=== PATIENT | male | born 1980 | race Caucasian/White ===

== ENCOUNTER 2016-07-08 15:04 | Observation (INO) | payer OTHER ==
--- NOTE | 2016-07-08 15:17 | CPEKG ---
Heart Rate: 86 RR Interval: 698 P-R Interval: 148 QRSD Interval: 100 QT Interval: 384 QTC Interval: 460 P Tatum: 32 QRS Tatum: 62 T Wave Tatum: 56 EKG Severity - NORMAL ECG - EKG Impression: SINUS RHYTHM Electronically Signed By: Lico Russell 08-Jul-2016 16:51:25
--- NOTE | 2016-07-08 15:28 | EDPHY ---
H & P Time Seen by Provider: 07/08/16 15:05 HPI/ROS: Chief complaint. Seizure HPI. 35-year-old male here by EMS after having a seizure. He tells me he had a routine day slept well last night, ate breakfast, had lunch. He was at his office and does not remember feeling lightheaded or different and the next thing he remembers is he awoke to EMS. A co-worker did not observe the initial fall or seizure but did witness some seizure activity and then prolonged loss of consciousness. He has had syncope with twitching previously but no full- blown seizure such as this. The patient injured his left ear left face and also complains of upper back pain. EMS placed a cervical collar but the patient tells me he does not have any neck pain. ROS Constitutional. no fever/chills, no weakness Eyes. no problems with vision ENT. Left face and left ear trauma. Bit tongue Cardiovascular. no chest pain Respiratory. no shortness of breath, no cough Abdominal. no abdominal pain, no nausea/vomiting, no diarrhea . no problems urinating MS. no calf pain/swelling, no neck/back pain, no joint pain Skin. no rash Lymph. no swollen glands Neuro. no headache, no dizziness, no difficulty walking or with speech Past Medical/Surgical History: Previous syncope with twitching or seizure-type activity. Stress live it related vomiting-cyclic vomiting syndrome, previous atrial fibrillation Social History: , does not smoke tobacco, 1-2 drinks of alcohol per month Physical Exam: General Appearance: Alert well-developed male moderate distress vital signs are stable Eyes: Pupils equal and round no pallor or injection. ENT, tympanic membranes are normal. There is a hematoma to the left ear and the superficial laceration at the entrance to the left ear canal. There is an abrasion to the left side of his nose as well as to the left advent.. Abrasion to the left side of his tongue Respiratory: There are no retractions, lungs are clear to auscultation. Cardiovascular: Regular rate and rhythm. Gastrointestinal: Abdomen is soft and nontender, no masses, bowel sounds normal. Neurological: Awake and alert, sensory and motor exams grossly normal. Skin: Warm and dry, no rashes. Musculoskeletal: Neck is supple nontender. Thoracic spine tenderness at T4-T5 T6 area Extremities symmetrical, full range of motion. Psychiatric: Patient is oriented X 3, there is no agitation. Constitutional: Initial Vital Signs Temperature (C) 36.9 C 07/08/16 15:31 Heart Rate 83 07/08/16 15:31 Respiratory Rate 16 07/08/16 15:31 Blood Pressure 142/92 H 07/08/16 15:31 O2 Sat (%) 96 07/08/16 15:31 O2 Delivery Mode Room Air Allergies/Adverse Reactions: No Known Allergies Allergy (Unverified 08/28/12 02:23) Home Medications: Medication Instructions Recorded Escitalopram Oxalate [Lexapro] 10 mg PO DAILY 07/08/16 Propafenone HCl [Rythmol 150mg (*)] 150 mg PO DAILY PRN 07/08/16 Medical Decision Making - Diagnostics EKG Interpretation: EKG interpreted by me shows normal sinus rhythm with normal interval and axis. QRS is normal there is no significant ST elevation or depression. There is no arrhythmia. The rate is 86 Imaging: Normal head CT per Dr. nails and reviewed by me Per Dr. nails T4 and T5 compression fracture Procedures: IV normal saline, monitor, seizure precautions. Morphine for pain. The patient tells me he has no neck pain. I removed the collar and palpated his neck. He has no cervical spine tenderness. Gentle passive and active range of motion elicit no neck pain or neurologic findings so the cervical collar is discontinued by me ED Course/Re-evaluation: I consulted Neurosurgery who reviewed the film with me and they feel pain management at this point in time. They will see the patient in the hospital Discussed case with neurologist composition tile layer who recommends no Keppra at this point in time but they will also see him tonight Re-evaluation patient is more comfortable after the IV morphine. The patient, his , and I discussed treatment plan including recommendation for admission and further evaluation. They expressed understanding and agreement I consulted Dr. vishnu Ojeda, hospitalist, who will evaluate the patient in the ED Differential Diagnosis: Seizure of unclear etiology. No evidence for ingestions or withdrawals. No recent head trauma. No evidence for intracranial bleeding or brain tumor - Data Points Laboratory Results: Laboratory Results 07/08/16 15:29 07/08/16 15:29 07/08/16 15:29 WBC 14.57 H 10^3/uL (3.80-9.50) RBC 5.34 10^6/uL (4.40-6.38) Hgb 17.2 g/dL (13.7-17.5) Hct 52.1 H % (40.0-51.0) MCV 97.6 fL (81.5-99.8) MCH 32.2 pg (27.9-34.1) MCHC 33.0 g/dL (32.4-36.7) RDW 12.8 % (11.5-15.2) Plt Count 298 10^3/uL (150-400) MPV 10.0 fL (8.7-11.7) Neut % (Auto) Not Reported Lymph % (Auto) Not Reported [place] % (Auto) Not Reported Eos % (Auto) Not Reported Baso % (Auto) Not Reported Nucleat RBC Rel Count 0.4 H % (0.0-0.2) Absolute Neuts (auto) Not Reported Absolute Lymphs (auto) Not Reported Absolute Monos (auto) Not Reported Absolute Eos (auto) Not Reported Absolute Basos (auto) Not Reported Absolute Nucleated RBC 0.06 H 10^3/uL (0-0.01) Immature Gran % Not Reported Seg Neutrophils % 43 % Band Neutrophils % 1 % Lymphocytes % 46 % Monocytes % 6 % Basophils % 1 % Metamyelocytes % 3 % Immature Gran # Not Reported Absolute Seg Neuts 6.27 10^/uL (1.70-6.50) Absolute Band Neuts 0.15 10^3/uL (0.00-0.70) Absolute Lymphocytes 6.70 H 10^3/uL (1.00-3.00) Absolute Monocytes 0.87 H 10^3/uL (0.30-0.80) Absolute Basophils 0.15 H 10^3/uL (0.02-0.10) Absolute Metamyelocyte 0.44 H 10^3/mL (0.00-0.00) RBC/WBC/PLT Morphology NORMAL (NORMAL) Platelet Estimate ADEQUATE (ADEQ) Large Platelets PRESENT H Smear Review By Pending Sodium 147 H mEq/L (134-144) Potassium 3.7 mEq/L (3.5-5.2) Chloride 103 mEq/L (97-110) Carbon Dioxide 8 L* mEq/l (22-31) Anion Gap 36 mEq/L (8-16) BUN 13 mg/dL (7-23) Creatinine 1.0 mg/dL (0.7-1.3) Estimated GFR > 60 Glucose 116 H mg/dL (70-100) Calcium 10.1 mg/dL (8.5-10.4) Troponin I < 0.012 ng/mL (0-0.034) Medications Given: Discontinued Medications Sodium Chloride (Ns) 1,000 mls @ 0 mls/hr IV ONCE ONE PRN Reason: Wide Open Stop: 07/08/16 15:30 Last Admin: 07/08/16 15:30 Dose: 1,000 mls Morphine Sulfate (Morphine) 6 mg IVP EDNOW ONE Stop: 07/08/16 15:47 Last Admin: 07/08/16 15:50 Dose: 6 mg Departure - Departure Disposition: [facility] In[facility] Acute Clinical Impression: Seizure Compression fracture of thoracic vertebra Qualifiers: Encounter type: initial encounter Fracture type: closed Qualifier Code: ( S22.000A) Wedge compression fracture of unspecified thoracic vertebra, initial encounter for closed fracture Condition: Good
[2016-07-08] MEDS ORDERED: NS 1,000 ML IV ONE ×3 (15:29→18:09)
[2016-07-08 15:46] LABS: ABSOLUTE NRBC COUNT 0.06 10^3/uL (0-0.01); ADD DIFF? YES; ADD MORPH? NO; ADD SCAN? NO; ATYPICAL LYMPHOCYTE FLAG 20 (0-99); FRAGMENT RBC FLAG 0 (0-99); HEMATOCRIT 52.1 % (40.0-51.0); HEMOGLOBIN 17.2 g/dL (13.7-17.5); LEFT SHIFT FLG 20 (0-99); LIPEMIA HEMOLYSIS FLAG 80 (0-99); MEAN CELL HEMOGLOBIN 32.2 pg (27.9-34.1); MEAN CELL VOLUME 97.6 fL (81.5-99.8); NRBC-AUTO% 0.4 % (0.0-0.2); PLATELET CLUMPS FLAG 0 (0-99); PLATELET COUNT 298 10^3/uL (150-400); RED BLOOD CELL COUNT 5.34 10^6/uL (4.40-6.38); RED CELL DISTRIBUTION WIDTH 12.8 % (11.5-15.2)
[2016-07-08 15:51] LABS: CALCIUM 10.1 mg/dL (8.5-10.4); CARBON DIOXIDE 8 mEq/l (22-31); CHLORIDE 103 mEq/L (97-110); GLOMERULAR FILTRATION RATE > 60; GLUCOSE 116 mg/dL (70-100); POTASSIUM 3.7 mEq/L (3.5-5.2); SODIUM 147 mEq/L (134-144)
[2016-07-08 15:52] LABS: ANION GAP 36 mEq/L (8-16)
[2016-07-08 16:02] LABS: TROPONIN I < 0.012 ng/mL (0-0.034)
[2016-07-08 16:42] LABS: LARGE PLATELETS PRESENT
[2016-07-08 16:43] LABS: PLATELET ESTIMATE ADEQUATE (ADEQ)
--- NOTE | 2016-07-08 17:07 | CT ---
CT Scan of Head (Without Contrast) Clinical Indications: Seizure. Technique: Axial CT images were acquired from foramen magnum through vertex, without intravenous con trast. Soft tissue and bone windows were reviewed on the computer workstation. Images were reconstr ucted down to 1.25-mm images. Dose reduction techniques were utilized. Findings: No mass lesions are seen, and there is no evidence of intracranial hemorrhage or acute inf arct. The ventricles and subarachnoid spaces are normal in size for this age group. Bone windows re veal no sign of fracture. There is some maxillary sinus disease on the right side. Impression: Normal CT of the head. Right maxillary sinus disease Critical results relayed by Dr. Moi Hauser to Dr. Lico Russell on July 08, 2016 at 1703 hours.
[2016-07-08] MEDS ORDERED: ONDANSETRON DISINTEGRATING 4 MG TAB PO PRN (17:11)
[2016-07-08] MEDS ORDERED: ACETAMINOPHEN 325 MG TAB PO PRN (17:11)
[2016-07-08] MEDS ORDERED: ONDANSETRON 4 MG/2 ML VIAL IVP PRN (17:11)
--- NOTE | 2016-07-08 17:34 | CT ---
CT Thoracic Spine Clinical Indication: Trauma. Technique: 1.5-mm contiguous helical axial scanning from the thoracic inlet through the upper abdome n centered on the thoracic spine. Reconstructions were performed in the coronal and sagittal planes. Dose reduction technique was performed. Findings: There are 13 sets of ribs. This likely represents small cervical ribs. Conventional labe ling was performed from inferior to superior, with the lowest level of ribs at T12. There are wedge compression fractures, without significant retropulsion, at T4 and T5. Loss of height is moderate at T4 and mild to moderate at T5. The pedicles are intact. There is no evidence of adjacent rib fract ures. Mild amount of soft tissue swelling is present. I do not see a definite disk bulge or spinal canal c ompromise. Impression: Two-level compression fractures, with mild to moderate height loss, at T4 and T5. Critical results discussed by Dr. Hauser with Dr. Russell on July 08, 2016 at 1723 hours.
[2016-07-08] MEDS ORDERED: NS 1,000 ML IV SCH (18:15)
--- NOTE | 2016-07-08 18:39 | GHP ---
[f rep st] HISTORY AND PHYSICAL DATE OF ADMISSION: 07/08/2016 CHIEF COMPLAINT: Loss of consciousness. HISTORY OF PRESENT ILLNESS: A 35-year-old male with a history of anxiety on Lexapro, who presents af ter loss of consciousness while at work. The patient reports being in his normal state of health on the morning of presentation, eating a normal breakfast, denying any palpitations, lightheadedness, di zziness, chest pain, shortness of breath, was experiencing some nervousness or anxiety at work relate d to the project he was working on, otherwise normal morning for him. The next thing he recalls is w aking up with paramedics standing over him. Nobody witnessed the event. Patient clearly fell and park d a laceration of his head, bit his tongue, and sounds per descriptions by paramedics and those obser ving him was postictal in the period as he was going to regaining consciousness. Patient reports hav ing a similar episode of loss of consciousness several years ago, was evaluated at the time, and had a transient rhythm strip showing atrial fibrillation, followed at [facility] with an event monito r for over a month that showed no recurrence of his atrial fibrillation. Since that time, cannot rep ort any similar episodes. In the emergency department, patient is complaining of severe thoracic rick k pain and difficulty sitting up or moving. Endorses some headache. Denies any vision changes, dysp hagia, chest pain, palpitations, abdominal discomfort, or pain in his extremities. PAST MEDICAL HISTORY: 1. Anxiety, on Lexapro. 2. Lone atrial fibrillation, not receiving treatment. SOCIAL HISTORY: Negative for tobacco. Occasional alcohol and nightly marijuana use. FAMILY HISTORY: Negative for seizures. REVIEW OF SYSTEMS: A 10-point review of systems is negative with the exception of that reported in t he HPI. ADVANCED DIRECTIVES: Patient is full cor, full tube. PHYSICAL EXAMINATION: VITAL SIGNS: Blood pressure is 142/92, heart rate 83, respiratory rate 16, 96 % on room air, 36.9. GENERAL: This is a thin-appearing young man, in mild distress. HEENT: Notabl e for dry mucous membranes. Eyes negative for any icterus. Patient does have a laceration across hi s left church and blood in his left ear. There is a sizable laceration of the tongue noted on ENT ex am. CARDIAC: Patient has regular rate and rhythm. No murmurs, gallops, or rubs. PULMONARY: Clear to auscultation bilaterally. GASTROINTESTINAL: Positive bowel sounds. Abdomen is soft and nontend er to palpation. MUSCULOSKELETAL: Patient has point tenderness in his midthoracic vertebrae, is dioni ble to sit up secondary to pain. No lower extremity edema is appreciated. SKIN: Negative for any r ashes. NEUROLOGIC: Patient is alert and oriented x3. His sensation is intact throughout. Strength is intact throughout. PSYCHIATRIC: He does appear anxious on my examination. DATA: Noncontrast CT of the head, which I personally reviewed and interpreted, shows no acute intrac ranial findings. Thoracic spine CT, which I personally reviewed and interpreted, shows compression f ractures at T4 and T5. Radiology describes mild to moderate height loss without disk bulge or canal stenosis. LABORATORY: White count 14.5, platelets at 298. Carbon dioxide of 8, sodium of 147, creatinine of 1 .0, baseline 0.7. Troponin less than 0.012. ASSESSMENT AND PLAN: This is a 35-year-old male, presenting after loss of consciousness. 1. Acute seizure: Patient has acidosis leukocytosis, compression fractures, tongue laceration, and head trauma consistent with a seizure episode. Have discussed the case with Neurology and will initi ate Keppra 750 mg b.i.d. this evening. They will consult in the morning for further recommendations. No additional imaging will be ordered this evening prior to their consultation. Patient will be ad mitted to the neurology floor under observation for neuro checks and monitoring. 2. Acute thoracic compression fractures, secondary to seizure: Neurosurgery has been consulted from the emergency department. They will consult. Will manage pain control overnight. Expect likely pat ient will be fitted with a brace tomorrow. 3. Severe metabolic acidosis: Anion gap is 36. Again, this is likely related to the patient's seiz ure. Will add a CK to his labs and track. Will provide aggressive fluid resuscitation overnight to avoid any evolving acute kidney injury and correct the patient's acid base abnormalities. 4. Acute leukocytosis: Suspect this is stress-related to the seizure event. Will recheck in the mo rning. Will not perform additional diagnostics related to occult infection as my suspicion is low. 5. Anxiety: Will continue patient's Lexapro, have reviewed with Pharmacy and there appears to be no in correlations with seizure thresholds or medications. 6. Prophylaxis: With Lovenox. 7. Diet: Regular. DISPOSITION: Expect in less than 2-midnights if the patient's neurologic consultation is uneventful. I have discussed the case with Neurology. They will consult early tomorrow morning. /[id number]/MODL
[2016-07-08] MEDS ORDERED: levETIRAcetam 500 MG TAB ONE (19:45)
[2016-07-08] MEDS: levETIRAcetam 250 MG TAB PO SCH (20:35)
[2016-07-08] MEDS: HYDROCODONE/APAP 5/325 TAB PO PRN (21:48)
[2016-07-09] MEDS: HYDROCODONE/APAP 5/325 TAB PO PRN ×4 (02:31→17:15)
[2016-07-09 04:04] LABS: PHENCYCLIDINE URINE BCH < 6 ng/ml (NEGATIVE)
[2016-07-09 04:14] LABS: PHENCYCLIDINE URINE BCH NEGATIVE (NEGATIVE)
[2016-07-09 04:16] LABS: TETRAHYDROCANNABINOL URINE 684 ng/mL (NEGATIVE)
[2016-07-09 04:38] LABS: TETRAHYDROCANNABINOL URINE 684 ng/mL (NEGATIVE)
[2016-07-09 05:48] LABS: % IMMATURE GRANULYOCYTES 0.3 % (0.0-1.1); ABSOLUTE IMMATURE GRANULOCYTES 0.04 10^3/uL (0.00-0.10); ADD DIFF? NO; ADD MORPH? NO; ADD SCAN? NO; ATYPICAL LYMPHOCYTE FLAG 0 (0-99); FRAGMENT RBC FLAG 0 (0-99); HEMATOCRIT 41.9 % (40.0-51.0); HEMOGLOBIN 14.1 g/dL (13.7-17.5); LEFT SHIFT FLG 0 (0-99); LIPEMIA HEMOLYSIS FLAG 80 (0-99); MEAN CELL HEMOGLOBIN 31.5 pg (27.9-34.1); MEAN CELL HEMOGLOBIN CONCENTR. 33.7 g/dL (32.4-36.7); MEAN CELL VOLUME 93.7 fL (81.5-99.8); MEAN PLATELET VOLUME 9.7 fL (8.7-11.7); PLATELET CLUMPS FLAG 0 (0-99); PLATELET COUNT 195 10^3/uL (150-400); RED BLOOD CELL COUNT 4.47 10^6/uL (4.40-6.38); RED CELL DISTRIBUTION WIDTH 13.1 % (11.5-15.2)
[2016-07-09 06:04] LABS: ANION GAP 8 mEq/L (8-16); CALCIUM 8.4 mg/dL (8.5-10.4); CARBON DIOXIDE 23 mEq/l (22-31); CHLORIDE 109 mEq/L (97-110); CREATININE 0.7 mg/dL (0.7-1.3); GLOMERULAR FILTRATION RATE > 60; GLUCOSE 98 mg/dL (70-100); SODIUM 140 mEq/L (134-144)
[2016-07-09 07:10] LABS: ALBUMIN 3.1 g/dL (3.5-5.0); BILIRUBIN,TOTAL 0.6 mg/dL (0.1-1.4); BILIRUBIN-UNCONJUGATED 0.6 mg/dL (0.0-1.1); CALCIUM 8.3 mg/dL (8.5-10.4); MAGNESIUM 1.9 mg/dL (1.6-2.3); TOTAL PROTEIN 5.7 g/dL (6.3-8.2)
[2016-07-09] MEDS: levETIRAcetam 250 MG TAB PO SCH (07:46)
--- NOTE | 2016-07-09 08:33 | PDCONSULT ---
Regulatory Affairs Coordinator Note: HOSPITAL NEUROLOGY CONSULT REQUESTING: Maame Oliva MD REASON: seizure HPI: This is a 35-year-old right-handed gentleman with a history of anxiety, a lone/ isolated episode of atrial fibrillation, syncopal/presyncopal episodes with convulsive features who presented to our emergency department last night due to a seizure. History is provided by the patient as well as his via telephone. 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 He had been feeling quite stressed out due to a project, had some lightheadedness and the next thing he knew he woke up on the floor with paramedics around him. Paramedics were summoned as a co-worker had heard him from a far fall to the ground, but there was no witnessed seizure activity. Paramedics found the patient to be in a postictal state. He was brought to our Emergency Department and found to have a tongue laceration, thoracic compression fractures, leukocytosis and metabolic acidosis. His postictal state has cleared in the emergency department. Again, the patient is amnestic of the episode and there were no eye witnesses to confirm any actual convulsive activity. Patient denies having any previous seizures, however, endorses multiple episodes of passing out or feeling like he may pass out. His states that he has had several of these episodes witnessed where he will become pale and lose postural tone. She states he can variably respond to her questions appropriately. She also states that if he passes out for maybe some mild twitching, but no alonso generalized tonic or clonic activity. The patient has no epilepsy risk factors including traumatic brain injury, intracranial instrumentation/infection, collagen vascular disease, infantile/febrile seizures, family history of epilepsy. Patient has not had any new medication changes, denies any toxic exposures or ingestions, does not use illicit substances and does not drink alcohol in excess. He has no focal neurologic deficits, HAs, fevers, chills, neck stiffness, photophobia. ROS: As per the HPI, otherwise a complete 12 point ROS was performed and is negative ALLERGIES AND MEDS: As recorded in the EMR - reviewed and reconciled PFSH: As per the intake H&P by Dr. Oliva from 07/08/16 EXAM: GEN: WDWN laying in NAD HEENT: NCAT, sclera anicteric, conjunctiva not injected, MMM, oropharynx clear, no scalp tenderness, tongue laceration on the left NECK: supple, nontender, no meningismus CV: RRR s1 s2 wo m/r/c/g. Carotid pulses 2+ wo bruit NEURO: MS: awake, alert, oriented to all spheres. Speech nondysarthric. No language disturbance. Follows commands. Attends to both sides. Recent/remote memory grossly intact. Mood euthymic. Good fund of knowledge. CN: pupils 3mm round and reactive. Fundi with sharp discs. VFF. Primary gaze centered. Full ocular motility. Facial sensation preserved. Face symmetric. Palatoglossal movements intact. Shoulder shrug and head turn strong. MOTOR: normal bulk/tone. No adventitial movements. Full power throughout. SENSORY: intact to all modalities throughout. No extinction. COORD: no ataxia FN/HS. Angelita preserved. Romberg neg. REFLEX: plantars down. No clonus. DTRS 2/4. GAIT: unable to assess, as patient has too much back pain to ambulate DATA: Labs reviewed in the EMR CT head without contrast from yesterday reviewed-normal study IMPRESSION AND RECOMMENDATIONS: // GENERALIZED CONVULSION // LEUKOCYTOSIS - IMPROVED - REACTIVE // METABOLIC ACIDOSIS - IMPROVED - REACTIVE // THORACIC COMPRESSION FRACTURES FROM CONVULSION // HX ANXIETY // HX MULTIPLE SYNCOPAL/PRESYNCOPAL EPISODES Patient is here with what is very much likely a generalized convulsion. Although the convulsion was not witnessed, the epiphenomenon such as tongue laceration, leukocytosis, metabolic acidosis and thoracic compression fractures are compelling for seizure activity. Patient has no obvious provocative factor for his seizure and no epilepsy risk factors. - cont levetiracetam 750mg PO BID - MRI brain wow seizure protocol today - medical management per primary team - neurosurgery to evaluate for thoracic compression fractures - seizure safety precautions reviewed - no climbing heights, swimming/tub bathing alone, operating heavy machinery or other activities that could put self or others in harm's way due to seizures. 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 - driving restriction reviewed per state law - no driving for 90 days from seizure onset - clock resets with subsequent seizures - if MRI is unremarkable, can be discharged home today and followup with me in clinic in 2 weeks. Will need outpatient 4 hour vEEG. WBC 11.97 10^3/uL (3.80-9.50) H 07/09/16 05:17 RBC 4.47 10^6/uL (4.40-6.38) 07/09/16 05:17 Hgb 14.1 g/dL (13.7-17.5) 07/09/16 05:17 Hct 41.9 % (40.0-51.0) D 07/09/16 05:17 MCV 93.7 fL (81.5-99.8) 07/09/16 05:17 MCH 31.5 pg (27.9-34.1) 07/09/16 05:17 MCHC 33.7 g/dL (32.4-36.7) 07/09/16 05: RDW 13.1 % (11.5-15.2) 07/09/16 05:17 Plt Count 195 10^3/uL (150-400) D 07/09/16 05:17 MPV 9.7 fL (8.7-11.7) 07/09/16 05:17 Neut % (Auto) 67.6 % (39.3-74.2) 07/09/16 05:17 Lymph % (Auto) 21.9 % (15.0-45.0) 07/09/16 05:17 [place] % (Auto) 9.3 % (4.5-13.0) 07/09/16 05:17 Eos % (Auto) 0.6 % (0.6-7.6) 07/09/16 05:17 Baso % (Auto) 0.3 % (0.3-1.7) 07/09/16 05:17 Nucleat RBC Rel Count 0.0 % (0.0-0.2) 07/09/16 05:17 Absolute Neuts (auto) 8.10 10^3/uL (1.70-6.50) H 07/09/16 05:17 Absolute Lymphs (auto) 2.62 10^3/uL (1.00-3.00) 07/09/16 05:17 Absolute Monos (auto) 1.11 10^3/uL (0.30-0.80) H 07/09/16 05:17 Absolute Eos (auto) 0.07 10^3/uL (0.03-0.40) 07/09/16 05:17 Absolute Basos (auto) 0.03 10^3/uL (0.02-0.10) 07/09/16 05:17 Absolute Nucleated RBC 0.00 10^3/uL (0-0.01) 07/09/16 05:17 Immature Gran % 0.3 % (0.0-1.1) 07/09/16 05:17 Seg Neutrophils % 43 % 07/08/16 15:29 Band Neutrophils % 1 % 07/08/16 15:29 Lymphocytes % 46 % 07/08/16 15:29 Monocytes % 6 % 07/08/16 15: Basophils % 1 % 07/08/16 15: Metamyelocytes % 3 % 07/08/16 15: Immature Gran # 0.04 10^3/uL (0.00-0.10) 07/09/16 05:17 Absolute Seg Neuts 6.27 10^/uL (1.70-6.50) 07/08/16 15:29 Absolute Band Neuts 0.15 10^3/uL (0.00-0.70) 07/08/16 15:29 Absolute Lymphocytes 6.70 10^3/uL (1.00-3.00) H 07/08/16 15:29 Absolute Monocytes 0.87 10^3/uL (0.30-0.80) H 07/08/16 15:29 Absolute Basophils 0.15 10^3/uL (0.02-0.10) H 07/08/16 15:29 Absolute Metamyelocyte 0.44 10^3/mL (0.00-0.00) H 07/08/16 15:29 RBC/WBC/PLT Morphology NORMAL (NORMAL) 07/08/16 15:29 Platelet Estimate ADEQUATE (ADEQ) 07/08/16 15:29 Large Platelets PRESENT H 07/08/16 15:29 Sodium 140 mEq/L (134-144) 07/09/16 05:17 Potassium 4.0 mEq/L (3.5-5.2) 07/09/16 05:17 Chloride 109 mEq/L (97-110) 07/09/16 05:17 Carbon Dioxide 23 mEq/l (22-31) D 07/09/16 05:17 Anion Gap 8 mEq/L (8-16) 07/09/16 05:17 BUN 14 mg/dL (7-23) 07/09/16 05:17 Creatinine 0.7 mg/dL (0.7-1.3) 07/09/16 05:17 Estimated GFR > 60 07/09/16 05:17 Glucose 98 mg/dL (70-100) 07/09/16 05:17 Calcium 8.3 mg/dL (8.5-10.4) L 07/09/16 06:14 Phosphorus 3.7 mg/dL (2.5-4.5) 07/09/16 06:14 Magnesium 1.9 mg/dL (1.6-2.3) 07/09/16 06:14 Total Bilirubin 0.6 mg/dL (0.1-1.4) 07/09/16 06:14 Conjugated Bilirubin 0.0 mg/dL (0.0-0.5) 07/09/16 06:14 Unconjugated Bilirubin 0.6 mg/dL (0.0-1.1) 07/09/16 06:14 AST 35 IU/L (17-59) 07/09/16 06:14 ALT 36 IU/L (21-72) 07/09/16 06:14 Alkaline Phosphatase 58 IU/L (38-126) 07/09/16 06:14 Creatine Kinase 128 IU/L (0-224) 07/08/16 15:29 Troponin I < 0.012 ng/mL (0-0.034) 07/08/16 15:29 Total Protein 5.7 g/dL (6.3-8.2) L 07/09/16 06:14 Albumin 3.1 g/dL (3.5-5.0) L 07/09/16 06:14 TSH 0.986 uIU/mL (0.465-4.680) 07/09/16 05:17 Urine Opiates Screen 6130 ng/mL (NEGATIVE) 07/09/16 02:40 Urine Barbiturates NEGATIVE ng/mL (NEGATIVE) 07/09/16 02:40 Ur Phencyclidine Scrn NEGATIVE ng/mL (NEGATIVE) 07/09/16 02:40 Ur Amphetamine Screen NEGATIVE (NEGATIVE) 07/09/16 02:40 Ur Amphetamines Screen NEGATIVE ng/mL (NEGATIVE) 07/09/16 02:40 U Benzodiazepines Scrn NEGATIVE ng/mL (NEGATIVE) 07/09/16 02:40 Urine Cocaine Screen NEGATIVE ng/mL (NEGATIVE) 07/09/16 02:40 U Marijuana (THC) Screen 684 ng/mL (NEGATIVE) 07/09/16 02:40 Temp Pulse Resp BP Pulse Ox 36.4 C 67 14 127/90 H 91 L 07/09/16 08:00 07/09/16 08:00 07/09/16 08:00 07/09/16 08:00 07/09/16 08:00 O2 (L/minute) 1
[2016-07-09] MEDS ORDERED: GADOBUTROL 10 ML VIAL IVP ONE (08:44)
[2016-07-09] MEDS ORDERED: ESCITALOPRAM OXALATE 10 MG TAB PO SCH (09:00)
[2016-07-09] MEDS ORDERED: ENOXAPARIN 40 MG/0.4 ML SYR SC SCH ×2 (09:00)
--- NOTE | 2016-07-09 12:47 | GCON ---
[f rep st] CONSULTATION NEUROSURGICAL CONSULTATION DATE OF CONSULTATION: 07/09/2016 CHIEF COMPLAINT: History of back pain. HISTORY OF PRESENT ILLNESS: Mr. Crockett is a 35-year-old male with a history of anxiety and atrial f ibrillation. He was in his normal state of health until the morning of 07/08/16 when the next thing h e recalls was he woke up with paramedics standing over him. This was a nonwitnessed event, but he pretty eared to be postictal according to the paramedics. He was evaluated in the emergency department, and he was found to have a T4 compression fracture. Neurosurgical consultation was requested. He currentl y complains of ongoing back pain. He denies any rib pain or chest pain. He denies any leg pain, weakn ess, paresthesias, bowel or bladder problems or ataxia. PAST MEDICAL HISTORY: 1. Anxiety. 2. Atrial fibrillation. CURRENT MEDICATIONS: Lexapro. ALLERGIES: No known drug allergies. FAMILY HISTORY: Patient has no family history of seizures or spinal fractures. SOCIAL HISTORY: Patient is with no children. He states that he occasionally smokes, occasion ally drinks alcohol, and does use marijuana. REVIEW OF SYSTEMS: Negative. PHYSICAL EXAMINATION: GENERAL: Patient is a 35-year-old male lying in bed, no apparent distress. HEA D, EYES, EARS, NOSE, AND THROAT: Negative for drainage. EXTREMITIES: [place], warm, and dry. NEUROLOGICA L: Patient is awake, alert, oriented x4. Pupils equal, round, reactive to light. Extraocular motions are intact. There is no evidence of facial droop. Tongue and uvula are midline. Spinal accessory musc les are intact. His motor strength is 5/5 in his arms and legs. His sensation is grossly intact to li ght touch in his arms and legs. Deep tendon reflexes are 1+ out of 4 in the bilateral biceps, triceps , brachioradialis, patellar, and Achilles. DIAGNOSTIC STUDIES: A head CT without contrast on 07/08/2016 shows no evidence of an acute hemorrhag e. There is no evidence of a hydrocephalus. A CT scan of the thoracic spine without contrast on [facility] from 07/08/2016 shows preservation of t he sagittal alignment. There is a mild compression fracture at T4 and a possible very mild compressio n fracture at T5. There is no retropulsion and no evidence of canal compromise. IMPRESSION: This is a 35-year-old male with a mild T4 and T5 compression fracture after a seizure. H e is neurologically stable. PLAN: All of the above discussed in detail with the patient. This patient was seen by Dr. Hill thi s morning. Dr. Hill discussed with the patient that he has the option of wearing a [facility] brace for his T4 and T5 fractures. However, they are not very effective at treating this type of fracture. Since the patient is otherwise young and likely has good bone density, I would just recommend close o bservation with serial imaging studies. At this point in time, he can advance his activity, and he do es not require a brace. We will check standing x-rays of his thoracic spine today to evaluate the ali gnment at T4 and T5. Assuming these are stable, then he can be discharged once he is cleared by Neuro logy and Medicine and follow up with Dr. Hill in 2 weeks with repeat x-rays of his thoracic spine. He does have an MRI of his brain scheduled for today as well to rule out any underlying lesions. Assu rebekah this is negative, then it would be reasonable to discharge the patient. Please call with any [place] rological changes. /[id number]/MODL
[2016-07-09 13:00] VITALS: RESP 16
--- NOTE | 2016-07-09 13:05 | MR ---
MRI of the Brain (Without and With Contrast) 0906 hours Clinical Indication: New onset seizures. Technique: T1-weighted images were acquired axially and sagittally from the foramen magnum to the ve rtex. Axial fast inversion recovery, fast T2-weighted, and diffusion-weighted axial images were obta ined without contrast. Postcontrast axial and coronal images with the uneventful intravenous administ ration of 7 mL Gadavist contrast. Findings: Throughout the white matter of bilateral cerebral hemispheres, there are multiple predomin antly subcentimeter nonspecific hyperintense T2/FLAIR signal abnormalities without hemorrhage or mass effect. In the white matter adjacent to the right frontal horn, there is a 10 x 4 mm cystic focus li presley representing sequela of old trauma or postinfectious/postinflammatory sequela. No associated enh ancement or mass effect. The ventricles, cisterns, and sulci are normal without atrophy, hydrocephalu s, midline shift, herniation, or epidural/subdural hematomas. No intracranial hemorrhage or masses. D iffusion-weighted images demonstrate no acute infarct. Cerebellar tonsils are in normal position. Pit uitary gland is normal in size. Normal signal flow-void in the superior sagittal sinus, basilar arter y, and bilateral internal carotid arteries indicating patency. Postcontrast images demonstrate no enh ancing lesions or abnormal leptomeningeal enhancement. Paranasal sinuses and mastoid air cells are cl ear. No brainstem or cerebellar enhancing lesions. Impression: 1. Multiple nonspecific hyperintense T2/FLAIR signal abnormalities in the white matter of bilateral c erebral hemispheres. Differential diagnosis includes vasculitis, moderate microvascular ischemic glio sis, migraine-related sequela, atypical demyelinating disease, or postinfectious/postinflammatory seq uela. 2. No acute infarct, acute hemorrhage, hydrocephalus, or mass effect. 3. No evidence of enhancing masses.
--- NOTE | 2016-07-09 13:46 | HOSPPROG ---
Hospitalist Progress Note Assessment/Plan: Patient is a 35-year-old male with a history of anxiety who presented the emergency room after having loss of consciousness while at work. He he had no chest pain shortness of breath or dizziness. He recalled waking up with paramedics standing over him. No one had witnessed this event. He sustained a laceration to his head that his tongue and was postictal. Today is my 1st encounter with the patient, chart reviewed. #. Seizures / acute - reviewed his care with Neurology - will continue him on Keppra and he can further follow up with Neurology in the outpatient setting - MRI showed nothing acute - plan for an EEG in the outpatient setting - explained to the patient and his that he will not be able to drive per [place] law/ will need further follow-up with Neurology #. acute thoracic compression fractures / T4 and T5 - appreciate Neurosurgery seen him - brace is not indicated - having significant pain /trial of Oxy-IR and ibuprofen #. loss of consciousness - history of probable vasovagal syncope - had a cardiac workup including a Holter monitor which showed no recurrence of atrial fibrillation #. metabolic acidosis - much improved #. acute leukocytosis - much improved #. anxiety - Lexapro re-initiated #. lone atrial fibrillation - he is in sinus rhythm during my evaluation #. cannabis use - has been using this for multiple years #. plan. if his pain is well managed and he is able to ambulate well without difficulty can be discharged later today. Will await further input from PT and OT. Subjective: Lucas is not complaining of any pain during my interview but was medicated earlier Objective: Vital Signs Temp Pulse Resp BP Pulse Ox 36.7 C 48 L 16 125/78 H 96 07/09/16 12:00 07/09/16 12:00 07/09/16 12:00 07/09/16 12:00 07/09/16 12:00 Laboratory Results 07/09/16 05:17 07/09/16 05:17 07/08/16 07/09/16 07/10/16 05:59 05:59 05:59 Intake Total 3000 700 Output Total 650 Balance 2350 700 - Physical Exam Constitutional: no apparent distress, appears nourished, not in pain Eyes: PERRL Ears, Nose, Mouth, Throat: hearing normal Cardiovascular: regular rate and rhythym, no murmur, rub, or gallop Respiratory: no respiratory distress Gastrointestinal: normoactive bowel sounds Skin: other ( left ear with ecchymosis, a laceration on the left side of his tongue, small laceration around the left jewish area) Neurologic: AAOx3 Psychiatric: interacting appropriately, not anxious ICD10 Worksheet Patient Problems: Problems Problem Status Diagnosed Seizure Acute Thoracic compression fracture Acute
[2016-07-09] MEDS ORDERED: IBUPROFEN 200 MG TAB PO PRN (14:24)
[2016-07-09] MEDS ORDERED: LIDOCAINE 5% 1 EA PATCH TD SCH (14:30)
[2016-07-09] MEDS ORDERED: oxyCODONE IR 5 MG TAB PO PRN (14:34)
[2016-07-09 15:49] VITALS: BP 118/88; PULSE 50; TEMP 98.4; O2SAT 95
--- NOTE | 2016-07-09 16:49 | DX ---
Thoracic spine series AP and lateral 1551 hours. History: Recent seizure with development of upper back pain and compression fractures. Findings: Comparison to CT study from July 08, 2016. Moderate anterior wedge compression fracture is once again noted at T4, mild to moderate at T5, and m ild at T6. No additional compression fractures are identified. There are no subluxations. Interverteb ral disk spaces are normal. There are no lytic or sclerotic osseous lesions. There is no significant scoliosis. Paravertebral soft tissues appear to be normal. Impression: 1. Moderate anterior wedge compression fracture at T4, mild to moderate at T5, and mild at T6 similar to prior CT study.
--- NOTE | 2016-07-09 18:41 | SOAPPROG ---
SOAP Progress Note Assessment/Plan: Assessment: 35 yo M with mild T4, T5 compression fracture Plan: stable standing x-rays stable alignment of the T4, T5 mild compression fractures patient does not need brace ok to dc from NS standpoint follow up with Dr Hill in 2 weeks with repeat x-rays of thoracic spine, 07/09/16 18:34 07/09/16 18:44 Subjective: pt not examined Objective: Vital Signs Temp Pulse Resp BP Pulse Ox 36.9 C 50 L 16 118/88 H 95 07/09/16 15:48 07/09/16 15:48 07/09/16 15:48 07/09/16 15:48 07/09/16 15:48 Laboratory Results 07/09/16 05:17 07/09/16 05:17 07/08/16 07/09/16 07/10/16 05:59 05:59 05:59 Intake Total 3000 1050 Output Total 650 Balance 2350 1050 pt not examined ICD10 Worksheet Patient Problems: Problems Problem Status Diagnosed Seizure Acute Thoracic compression fracture Acute
[2016-07-09] MEDS ORDERED: PATCH REMOVAL 1 EA PATCH TD SCH (21:00)
--- NOTE | 2016-07-09 21:44 | GDS ---
[f rep st] DISCHARGE SUMMARY DISCHARGE DIAGNOSES: 1. Acute onset of seizures. 2. Acute thoracic compression fractures at T4 and T5. 3. Loss of consciousness. 4. Metabolic acidosis. 5. Acute leukocytosis. 6. Anxiety. 7. Lone atrial fibrillation. 8. Cannabis use. CONSULTATIONS: 1. Moi Castillo DO. 2. Laurent Lewis PA-C with [facility]. BRIEF HISTORY: The patient is a 35-year-old male with a history of anxiety who presented after having a loss of consciousness while at work. He was in his normal state of health in the morning and all of a sudden found himself waking up with paramedics standing over him. Nobody witnessed the event. He fell and had a laceration of his head, bit his tongue, and it sounds (per description by paramedics) that he was postictal. He reports having a similar episode of loss of consciousness several years ago and was evaluated at that time and noted to have a transient rhythm strip showing atrial fibrillation. He followed up with [facility] and this showed no recurrence. He was admitted and seen and evaluated by Neurology. He had a CT of the head which was normal. It showed that he has right maxillary sinus disease. Subsequently, an MRI of the brain was performed which showed nothing acute. In addition, he hurt his back. A thoracic spine CT was performed which showed 2-level compression fractures with gyqy-rd-lqbtzddo height loss at T4 and T5. He was evaluated by Neurosurgery who did not feel he needed a brace because he is young. He will further follow up with them in the outpatient setting. HOSPITAL COURSE BY PROBLEM: 1. Seizure. He will be continued on Keppra. He will get an outpatient EEG. I explained to him that he is not to drive for 90 days from his most recent seizure. 2. Acute thoracic compression fracture at T4 and T5. Brace is not indicated. He has good pain control with [place] and ibuprofen. 3. Loss of consciousness. He has a history of probable vasovagal syndrome. He had a cardiac workup, including a monitor, which showed no recurrence of atrial fibrillation. I am recommending that he get further evaluation with [facility]. 4. Metabolic acidosis. Resolved. 5. Acute leukocytosis. Much improved. 6. Anxiety. Lexapro. 7. Lone atrial fibrillation. He is in sinus rhythm during my evaluation. 8. Cannabis use. He has been using cannabis for multiple years. PENDING LABS: None. CONDITION AT DISCHARGE: Stable. Blood pressure is 118/88, heart rate is 50, respiratory rate is 16, O2 saturations on room air are 95%, temperature is 36.9 Celsius. MEDICATIONS AT DISCHARGE: Please see the EMR. DISCHARGE INSTRUCTIONS: 1. Do not drive from this most recent surgery. If he has another seizure, this needs to be re-evaluated. 2. See Dr. Castillo in 2 weeks. He needs to get an EEG. 3. Take pain medications as prescribed. Do not drink or drive while on these medications. 4. Take Keppra b.i.d. 5. See Dr. Hill in 2 weeks for repeat x-rays of his back. 6. Seizure safety precautions, which include no climbing heights, no swimming or hot tubbing alone, no operating heavy machinery, and avoiding back country skiing. 7. Recommending he get further followup with the correspondence dictator. Copy requested to: Moi Castillo DO /[id number]/MODL MTDD
== END 2016-07-09 18:41 | disposition home or self-care (01) ==
LOC: EDUNIT# → F3N 21:08
PROVIDERS: ADMIT Hospitalist; ATTEND Hospitalist
DX: R56.9 Unspecified convulsions (principal); S22.040A Wedge compression fracture of fourth thoracic vertebra, initial encounter for closed fracture; S22.050A Wedge compression fracture of T5-T6 vertebra, initial encounter for closed fracture; S01.312A Laceration without foreign body of left ear, initial encounter; S01.81XA Laceration without foreign body of other part of head, initial encounter; S00.432A Contusion of left ear, initial encounter; S01.512A Laceration without foreign body of oral cavity, initial encounter; R55 Syncope and collapse; E87.2 Acidosis; D72.829 Elevated white blood cell count, unspecified; F41.9 Anxiety disorder, unspecified; I48.91 Unspecified atrial fibrillation; F12.10 Cannabis abuse, uncomplicated; W19.XXXA Unspecified fall, initial encounter
CPT/HCPCS: 70450; 70553; 72070; 72128; 92523; 93005; 96361; 96374; 97161; 99285; G0378; 80305; 80307; A9585; G0480; J1650

== ENCOUNTER → 2016-07-15 | Outpatient (CLI) | payer OTHER ==
--- NOTE | 2016-07-15 14:29 | DX ---
Thoracic Spine, 2 upright views HISTORY: Fall several days ago, follow-up compression fracture at T4 and T5 COMPARISON: July 09, 2016 (supine) FINDINGS: Compression fractures of T4, T5 and T6 have not significantly changed x5 days. A focal kyph osis measures approximately 36 degrees compared to prior 32 degrees. No new compressions have develop ed. Impression: Little if any change.
== END ==
LOC: FIMAGING 10:33
PROVIDERS: ATTEND Neurological Surgery
DX: S22.04 Fracture of fourth thoracic vertebra (principal); S22.058 Other fracture of T5-T6 vertebra

== ENCOUNTER → 2016-08-01 | Outpatient (CLI) | payer OTHER ==
--- NOTE | 2016-08-07 13:15 | CPEEG ---
[f rep st] ELECTROENCEPHALOGRAM DATE OF STUDY: 08/01/2016 INTRODUCTION: This is a multichannel EEG using the standard international 10/20 system of disc elect rode placement. Single EKG channel is monitored for the duration of the study. The study is underta mckenna for the evaluation of seizures. Pertinent medications include levetiracetam. The duration of th e study is 30 minutes. DESCRIPTION OF RECORDING: In the maximum alert state, the patient achieved a symmetric and well-form ed dominant rhythm of 10 Hz alpha that attenuated with eye opening. Photic stimulation failed to act ivate the tracing. Hyperventilation failed to activate the tracing. Patient was found to be drowsy as marked by attenuation of the background and slow roving eye movements. No sleep architecture was identified. The EKG demonstrated normal sinus rhythm. IMPRESSION: Normal awake and drowsy electroencephalogram. CLINICAL CORRELATION: No focal lateralizing epileptiform discharges. /[id number]/MODL
== END ==
LOC: FCPNEURO 07:50
PROVIDERS: ATTEND Psychiatry & Neurology Neurology
DX: R56.9 Unspecified convulsions (principal)

== ENCOUNTER → 2016-08-11 | Day surgery (SDC) | payer OTHER ==
[~2016-08-11] MED LIST: LIDOCAINE 1% 30 ML SDV ONE
--- NOTE | 2016-08-12 08:56 | EPPROC ---
Electrophysiology Procedure Note: Procedure - LINQ monitor Indication - syncope vs seizure Procedure - Using sterile and standard technique, under local anesthesia, LINQ monitor was placed in L parasternal location in 4th ICS. No complications. Recording triggers - HR <40 bpm >182 bpm, ventricular pauses >3 seconds + patient activated triggers Patient Problems: Problems Problem Status Onset Seizure Acute Thoracic compression fracture Acute
== END | disposition home or self-care (01) ==
LOC: FCATH 10:47
PROVIDERS: ATTEND Internal Medicine Cardiovascular Disease
PROC: 0JH632Z Insertion of Monitoring Device into Chest Subcutaneous Tissue and Fascia, Percutaneous Approach (ICD-10-PCS; principal; 2016-08-11)
DX: I48.0 Paroxysmal atrial fibrillation (principal); R55 Syncope and collapse; F41.9 Anxiety disorder, unspecified; Z87.891 Personal history of nicotine dependence
CPT/HCPCS: C1764

== ENCOUNTER → 2016-09-08 | Outpatient (CLI) | payer OTHER | LOC: FIMAGING 10:21 | PROVIDERS: ATTEND Neurological Surgery | DX: S22.040D Wedge compression fracture of fourth thoracic vertebra, subsequent encounter for fracture with routine healing (principal); X58.XXXD Exposure to other specified factors, subsequent encounter ==

== ENCOUNTER 2016-12-29 17:21 | Inpatient (IN) | payer OTHER ==
--- NOTE | 2016-12-29 17:40 | CPEKG ---
Heart Rate: 62 RR Interval: 968 P-R Interval: 160 QRSD Interval: 98 QT Interval: 408 QTC Interval: 415 P [place]: 29 QRS [place]: 72 T Wave [place]: 53 EKG Severity - NORMAL ECG - EKG Impression: SINUS RHYTHM EKG Impression: Unchanged from previous Electronically Signed By: Moi Marinelli 29-Dec-2016 17:52:25
--- NOTE | 2016-12-29 17:48 | EDPHY ---
H & P Stated Complaint: pt had syncopal episode 12/27 had link moniter up to 18sec pause Time Seen by Provider: 12/29/16 17:36 HPI/ROS: CHIEF COMPLAINT: Syncope HISTORY OF PRESENT ILLNESS: The patient is a 36-year-old healthy man with a history of vague arrhythmias and multiple episodes of syncope and presyncope. He is followed by Dr. Casas and has a loop recorder in place. He takes Keppra with a thought that these may have been focal seizures. Then on Thursday he had an episode that was caught on his loop recorder and revealed an 18 second sinus pause. He then went camping and felt fine for the last [address] Casas office called him a told him to come get admitted and have a pacemaker placed in the morning. He does not feel ill. He has not had any recent infections. REVIEW OF SYSTEMS: Constitutional: denies: chills, fever, recent illness, recent injury EENTM: denies: blurred vision, double vision, nose congestion Respiratory: denies: cough, shortness of breath Cardiac: See HPI Gastrointestinal/Abdominal: denies: abdominal pain, diarrhea, nausea, vomiting, blood streaked stools Genitourinary: denies: dysuria, frequency, hematuria, pain Musculoskeletal: denies: joint pain, muscle pain Skin: denies: lesions, rash, jaundice, bruising Neurological: denies: headache, numbness, paresthesia, tingling, dizziness, weakness Hematologic/Lymphatic: denies: blood clots, easy bleeding, easy bruising Immunologic/allergic: denies: HIV/AIDS, transplant EXAM: GENERAL: Well-appearing, well-nourished and in no acute distress. HEAD: Atraumatic, normocephalic. EYES: Pupils equal round and reactive to light, extraocular movements intact, sclera anicteric, conjunctiva are normal. ENT: TMs normal, nares patent, oropharynx clear without exudates. Moist mucous membranes. NECK: Normal range of motion, supple without lymphadenopathy or JVD. LUNGS: Breath sounds clear to auscultation bilaterally and equal. No wheezes rales or rhonchi. HEART: Regular rate and rhythm without murmurs, rubs or gallops. ABDOMEN: Soft, nontender, normoactive bowel sounds. No guarding, no rebound. No masses appreciated. BACK: No CVA tenderness, no spinal tenderness, step-offs or deformities EXTREMITIES: Normal range of motion, no pitting or edema. No clubbing or cyanosis. NEUROLOGICAL: Cranial nerves II through XII grossly intact. Normal speech, normal gait. 5/5 strength, normal movement in all extremities, normal sensation PSYCH: Normal mood, normal affect. SKIN: Warm, dry, normal turgor, no visible rashes or lesions. Source: Patient Exam Limitations: No limitations - Personal History Current Tetanus/Diphtheria Vaccine: Yes Current Tetanus Diphtheria and Acellular Pertussis (TDAP): Yes Tetanus Vaccine Date: unsure - Medical/Surgical History Hx Asthma: No Hx Chronic Respiratory Disease: No Hx Diabetes: No Hx Cardiac Disease: No Hx Renal Disease: No Hx Cirrhosis: No Hx Alcoholism: No Hx HIV/AIDS: No Hx Splenectomy or Spleen Trauma: No Other PMH: arrythmia but no treatment for same but sees MD at [facility].syncopal events related to bradycardia - Family History Significant Family History: No pertinent family hx - Social History Smoking Status: Never smoked Alcohol Use: Sober Drug Use: None Constitutional: Initial Vital Signs Temperature (C) 37.1 C 12/29/16 17:25 Heart Rate 70 12/29/16 17:25 Respiratory Rate 18 12/29/16 17:25 Blood Pressure 101/67 12/29/16 17:25 O2 Sat (%) 96 12/29/16 17:25 O2 Delivery Mode Room Air Allergies/Adverse Reactions: No Known Allergies Allergy (Unverified 12/29/16 17:29) Home Medications: Medication Instructions Recorded Escitalopram Oxalate [Lexapro 10 10 mg PO DAILY 07/08/16 MG] LEVETIRACETAM [Keppra 750 mg] 750 mg PO BID #60 tab 07/09/16 LORazepam [Ativan (*)] 0.5 - 1 mg PO DAILY PRN 12/29/16 Medical Decision Making - Diagnostics EKG Interpretation: An EKG obtained and was read and documented in trace view. Please see trace view for full reading and report. Sinus rhythm, no acute ischemic changes ED Course/Re-evaluation: 5:50 p.m. I discussed the case with Dr HOWIE Oliva who will admit to medical service and keep NPO. We will place him on PCU. Differential Diagnosis: Partial list of the Differential diagnosis considered include but were not limited to; arrhythmia, syncope, dehydration and although unlikely based on the history and physical exam, I also considered infection, seizure, TIA. - Data Points Laboratory Results: Laboratory Results 12/29/16 17:42 12/29/16 17:42 12/29/16 12/29/16 12/29/16 17:42 17:42 17:42 WBC 10.34 10^3/uL H 10^3/uL (3.80-9.50) RBC 4.75 10^6/uL 10^6/uL (4.40-6.38) Hgb 15.1 g/dL g/dL (13.7-17.5) Hct 43.2 % % (40.0-51.0) MCV 90.9 fL fL (81.5-99.8) MCH 31.8 pg pg (27.9-34.1) MCHC 35.0 g/dL g/dL (32.4-36.7) RDW 12.2 % % (11.5-15.2) Plt Count 206 10^3/uL 10^3/uL (150-400) MPV 9.9 fL fL (8.7-11.7) Neut % (Auto) 57.2 % % (39.3-74.2) Lymph % (Auto) 33.8 % % (15.0-45.0) Mcdonald % (Auto) 7.2 % % (4.5-13.0) Eos % (Auto) 1.1 % % (0.6-7.6) Baso % (Auto) 0.4 % % (0.3-1.7) Nucleat RBC Rel Count 0.0 % % (0.0-0.2) Absolute Neuts (auto) 5.93 10^3/uL 10^3/uL (1.70-6.50) Absolute Lymphs (auto) 3.49 10^3/uL H 10^3/uL (1.00-3.00) Absolute Monos (auto) 0.74 10^3/uL 10^3/uL (0.30-0.80) Absolute Eos (auto) 0.11 10^3/uL 10^3/uL (0.03-0.40) Absolute Basos (auto) 0.04 10^3/uL 10^3/uL (0.02-0.10) Absolute Nucleated RBC 0.00 10^3/uL 10^3/uL (0-0.01) Immature Gran % 0.3 % % (0.0-1.1) Immature Gran # 0.03 10^3/uL 10^3/uL (0.00-0.10) PT 13.9 SEC SEC (12.0-15.0) INR 1.08 (0.83-1.16) APTT 27.8 SEC SEC (23.0-38.0) Sodium 141 mEq/L mEq/L (134-144) Potassium 3.9 mEq/L mEq/L (3.5-5.2) Chloride 104 mEq/L mEq/L (97-110) Carbon Dioxide 26 mEq/l mEq/l (22-31) Anion Gap 11 mEq/L mEq/L (8-16) BUN 10 mg/dL mg/dL (7-23) Creatinine 0.9 mg/dL mg/dL (0.7-1.3) Estimated GFR > 60 Glucose 73 mg/dL mg/dL (70-100) Calcium 10.0 mg/dL mg/dL (8.5-10.4) Troponin I < 0.012 ng/mL ng/mL (0-0.034) Departure - Departure Disposition: [facility] Inpatient Acute Clinical Impression: Arrhythmia Qualifiers: Arrhythmia type: unspecified cardiac arrhythmia Qualified Code(s): I49.9 - Cardiac arrhythmia, unspecified Syncope Qualifiers: Syncope type: unspecified Qualified Code(s): R55 - Syncope and collapse Condition: Fair
[2016-12-29] MEDS ORDERED: ACETAMINOPHEN 325 MG TAB PO PRN (17:55)
[2016-12-29] MEDS ORDERED: NS 1,000 ML IV SCH (18:00)
[2016-12-29 18:10] LABS: % IMMATURE GRANULYOCYTES 0.3 % (0.0-1.1); ABSOLUTE IMMATURE GRANULOCYTES 0.03 10^3/uL (0.00-0.10); ADD DIFF? NO; ADD MORPH? NO; ADD SCAN? NO; ATYPICAL LYMPHOCYTE FLAG 10 (0-99); FRAGMENT RBC FLAG 0 (0-99); HEMATOCRIT 43.2 % (40.0-51.0); HEMOGLOBIN 15.1 g/dL (13.7-17.5); LEFT SHIFT FLG 0 (0-99); LIPEMIA HEMOLYSIS FLAG 90 (0-99); MEAN CELL HEMOGLOBIN 31.8 pg (27.9-34.1); MEAN CELL VOLUME 90.9 fL (81.5-99.8); MEAN PLATELET VOLUME 9.9 fL (8.7-11.7); PLATELET CLUMPS FLAG 0 (0-99); PLATELET COUNT 206 10^3/uL (150-400); RED BLOOD CELL COUNT 4.75 10^6/uL (4.40-6.38); RED CELL DISTRIBUTION WIDTH 12.2 % (11.5-15.2)
[2016-12-29 18:19] LABS: INR 1.08 (0.83-1.16); PROTIME(PATIENT) 13.9 SEC (12.0-15.0)
[2016-12-29 18:20] LABS: APTT 27.8 SEC (23.0-38.0)
[2016-12-29 18:23] LABS: ANION GAP 11 mEq/L (8-16); CARBON DIOXIDE 26 mEq/l (22-31); CHLORIDE 104 mEq/L (97-110); CREATININE 0.9 mg/dL (0.7-1.3); GLOMERULAR FILTRATION RATE > 60; GLUCOSE 73 mg/dL (70-100); POTASSIUM 3.9 mEq/L (3.5-5.2); SODIUM 141 mEq/L (134-144)
[2016-12-29 18:34] LABS: TROPONIN I < 0.012 ng/mL (0-0.034)
[2016-12-29] MEDS ORDERED: LORazepam 0.5 MG TAB PO PRN (19:44)
--- NOTE | 2016-12-29 20:40 | GHP ---
[f rep st] HISTORY AND PHYSICAL DATE OF ADMISSION: 12/29/2016 CHIEF COMPLAINT: Ventricular pauses found on LINQ monitor. HISTORY OF PRESENT ILLNESS: A 36-year-old male, who presents after being called by Cardiology for a long 18-second pause identified on his implantable LINQ monitor. The patient has a long-standing hi story through his adulthood of loss of consciousness. He had extensive workups in the past. Was se en in June 2016 for what appeared to be a witnessed seizure in his workplace. Had compression fr actures of his spine at that time. Was seen by Neurology and started on Keppra. The patient report s an episode of syncope while he was sitting on the toilet approximately 72 hours ago and then recei [place] a call from Cardiology that an extensive pause had been identified and the patient should presen t to the ED for hospitalization and placement of a pacemaker. In the PCU, the patient is not compla ining of any headache, vision changes, recent seizures, chest pain, shortness of breath, abdominal d iscomfort, nausea, vomiting, lower extremity edema, subjective fevers, chills, or dysuria. PAST MEDICAL HISTORY: 1. Suspected seizure disorder on Keppra. 2. Recurrent episodes of loss of consciousness. 3. Anxiety. 4. History of thoracic compression fractures T4 and T5. 5. Cannabis use. 6. A history of lone atrial fibrillation. SOCIAL HISTORY: Negative for tobacco. Occasional alcohol. No illicit drugs. Patient does smoke n ightly marijuana. FAMILY HISTORY: Negative for seizures. Also negative for any known cardiac dysrhythmias. REVIEW OF SYSTEMS: A 10-point review of systems is negative with the exception of that reported in the HPI. PHYSICAL EXAMINATION: VITAL SIGNS: Blood pressure 101/67, heart rate 70, respiratory rate 18, satu rating 96% on room, temperature 37.1 GENERAL: This is a very healthy-appearing male in no acute di stress. HEENT: Notable for moist mucous membranes. Eye exam is negative for any icterus. CARDIAC : The patient is regular rate and rhythm. PULMONARY: Clear to auscultation bilaterally. GASTROIN TESTINAL: Positive bowel sounds. ABDOMEN: Soft and nontender in all 4 quadrants. MUSCULOSKELETAL : Negative for any lower extremity edema. SKIN: Negative for any rashes. NEUROLOGIC: The patien t is alert and oriented x3. PSYCHIATRIC: He is pleasant and cooperative on interview and examinati on. DATA: White count 10.3 (appears to be his baseline), hematocrit 43, platelet count of 206. Creatin ine 0.9. Electrolytes are normal. INR 1.08. Troponin less than 0.012. EKG, which I personally reviewed and interpreted, shows sinus rhythm, normal axis, right bundle bran ch morphology in lead V1, no acute ST-T changes. ASSESSMENT AND PLAN: This is a 36-year-old male with a history of intermittent syncopal episodes an d loss of consciousness, presenting with an 18-second ventricular pause on LINQ monitor. 1. Acute ventricular pauses. The patient is being admitted for close telemetry monitoring and anti cipated implantation of a permanent pacemaker. Will continue to follow the patient on telemetry thi s evening. His rates are currently stable. Blood pressures are normal. Will not initiate any new medications at the time. Make the patient n.p.o. in anticipation of his procedure tomorrow. 2. Seizure disorder. The patient was started on Keppra therapy in June 2016. This will be cont inued at this time. He is followed in the outpatient setting by Neurology. 3. History of thoracic compression fractures, unchanged at T4 and T6 on last imaging, slight height loss at T5 was noted. Followed outpatient by Neurosurgery. 4. Anxiety. Can continue his home medications without alteration. 5. Prophylaxis. The patient is young. Will hold on Lovenox, as the patient is anticipating a proc edure tomorrow. DISPOSITION: I expect greater than 2 midnights. The patient has a ventricular pauses requiring implantation of a pacemaker. Will require postproced ural monitoring. I have discussed the case with the emergency room physician. Patient will be triaged to the PCU for care in anticipation of cardiology consultation. /[id number]/MODL
[2016-12-29] MEDS: levETIRAcetam 250 MG TAB PO SCH (20:58)
[2016-12-30 06:01] LABS: ANION GAP 9 mEq/L (8-16); CALCIUM 9.3 mg/dL (8.5-10.4); CARBON DIOXIDE 23 mEq/l (22-31); CHLORIDE 111 mEq/L (97-110); CREATININE 0.8 mg/dL (0.7-1.3); GLOMERULAR FILTRATION RATE > 60; GLUCOSE 98 mg/dL (70-100); POTASSIUM 4.1 mEq/L (3.5-5.2); SODIUM 143 mEq/L (134-144)
[2016-12-30] MEDS ORDERED: BACITRACIN IRRIGATION/NS 50,000 UNITS/1,000 ML BTL IRR ONE (08:49)
[2016-12-30] MEDS ORDERED: diphenhydrAMINE 25 MG CAP PO ONE ×2 (08:49→12:15)
[2016-12-30] MEDS ORDERED: DIAZEPAM 5 MG TAB PO ONE ×2 (08:49→12:15)
[2016-12-30] MEDS ORDERED: NS 1,000 ML IV SCH (09:00)
[2016-12-30] MEDS ORDERED: CEFAZOLIN 2 GM/DEXTROSE/100 ML BAG IV ONE (09:12)
[2016-12-30] MEDS: ESCITALOPRAM OXALATE 10 MG TAB PO SCH (09:20)
[2016-12-30] MEDS: levETIRAcetam 250 MG TAB PO SCH ×2 (09:29→21:20)
--- NOTE | 2016-12-30 11:33 | PDCARPN ---
Cardiology Progress Note Chief Complaint: Feeling poorly on December 27. Call from [facility] after an 18 second pause was noted on LINQ recorder. Assessment/Plan: Assessment: Patient is a 36 y/o male with history of pAF, seizures, and syncope, who presented to [facility] at [facility] request after 18 second pause was noted on LINQ monitor. Patient had this event in the night, and when awakened (either as a result of the pause or other unspecified reason), he had moderate dizziness , mild confusion, and was unable to get out of bed. We connected with the patient yesterday, and recommended that he go to the ER to have PPM implant. Patient reported to the ER, and voiced no cardiovascular complaints. No chest pains or pressure. No PND or orthopnea. Patient has only noted these events at night and "after a longer than normal weekend" which the patient did have with camping the weekend prior. Today, the patient has no complaints. Sleep overnight was uneventful. Family was present with the patient Plan: Risks and benefits of the procedures were discussed - we will explant the LINQ and perform a subclavian venogram to isolate the vein and ensure patency, then implant a PPM. Patient was in agreement with these plans. Subjective: No cardiovascular complaints. Reviewed/Discussed With: family, hospitalist, multidisciplinary team Objective: Vital Signs (8 Hrs) Temp Pulse Resp BP Pulse Ox 12/30/16 08:00 36.5 C 48 L 15 101/60 95 12/30/16 04:00 36.4 C 61 16 99/64 L 96 Intake/Output (24 Hrs) 12/29/16 12/30/16 12/31/16 05:59 05:59 05:59 Intake Total 400 Balance 400 Intake: Oral (ml) 400 Other: Weight 70.307 kg Intake Quantity Yes Sufficient Number of Voids Toilet 2 Result Diagrams: 12/29/16 17:42 12/30/16 04:57 Cardiac Labs: grossly normal findings EKG: normal sinus/sinus bradycardia Telemetry: sinus bradycardia Echocardiogram: not performed with this admission - Physical Exam Constitutional: WDWN, healthy appearing, no apparent distress Eyes: PERRL, EOMI Ears, Nose, Mouth, Throat: moist mucous membranes Cardiovascular: regular rate and rhythm, no murmurs, no rubs, no gallops Peripheral Pulses: 2+: dorsalis-pedis (R), dorsalis-pedis (L) Respiratory: clear to auscultate bilat, no crackles, no wheezes Gastrointestinal: normoactive bowel sounds, no tenderness Genitourinary: no suprapubic tenderness Skin: no rashes, no edema Musculoskeletal: no muscular tenderness Neurologic: AAOx3, CN II-XII grossly intact Psychiatric: cooperative, interactive, following commands ICD10 Worksheet Patient Problems: Problems Problem Status Onset Arrhythmia Acute Syncope Acute Seizure Acute Thoracic compression fracture Acute
[2016-12-30] MEDS ORDERED: BUPIVACAINE 0.5% 30 ML SDV ONE (12:16)
[2016-12-30] MEDS ORDERED: fentaNYL 100 MCG/2 ML INJ ONE ×2 (12:16→12:58)
[2016-12-30] MEDS ORDERED: LIDO/EPI 1% **for epidural** 30 ML SDV ONE (12:16)
[2016-12-30] MEDS ORDERED: LIDOCAINE 1% 300 MG/30 ML SDV ONE ×2 (12:16→13:05)
[2016-12-30] MEDS ORDERED: MIDAZOLAM 2 MG/2 ML VIAL ONE ×2 (12:16→12:58)
[2016-12-30] MEDS ORDERED: methylPREDNISolone SOD SUCC 125 MG/2 ML VIAL ONE (13:01)
--- NOTE | 2016-12-30 14:17 | SUROPNOTE ---
[facility] Operative Report - Surgery PROCEDURE: (1) LINQ explant (2) Left subclavian venogram (3) PPM (dual chamber) implant INDICATION: (1) 18 second pause noted on LINQ DETAILS: After consent was obtained, the patient was brought to the cardiac sleep lab technologist in fasted state. The patient was prepped and draped in modified fashion to facilitate explanation of the LINQ monitoring device. Lidocaine was used for local anesthetic, and a #12 blade was used to expose the device. The device was explanted and 2 rick were placed over the small incision. Scrub was broken and the patient was redressed, prepped, and draped for a second procedure. Venogram was performed to isolate the subclavian vein, and document patency. Immediately after injection of the contrast, mild discoloration of the venous system to the left shoulder was noted, so a dose of solumedrol (125 mg) was given, and discoloration resolved. Would consider this an "allergic reaction" to contrast. Two separate sticks were performed to access the venous system. Following this, an incision with #10 blade was made, and depth was achieved with bovie and blunt dissection. Raytech soaked in bacitracin was placed into the pocket and the wires were pulled into the pocket. The ventricular lead was placed first followed by the atrial lead. Ventricular lead: SN: [id number], M#: [id number] with capture at 0.5 V @ 0.5 ms, 0.8 mA, sensing at 12.4 mV, 4.5 V/s and imp at 583 ohms lead was sutured into position Atrial lead: SN: [id number], M#[id number] with capture at 1.7 V @ 0.5 ms, 2.7 mA, sensing at 3.7 mV, 0.9 V/s and imp at 579 ohms lead was sutured into position Raytech was explanted and the pocket was inspected for haemostasis. The device was implanted and sutured into position Device: SN: [id number], M# [id number] No complications were appreciated. Patient tolerated this procedure well. Given the discoloration noted with the venogram to the shoulder (involving the venous system), would add "allergy to contrast" Post procedure CXR and am interrogation with CXR pending.
--- NOTE | 2016-12-30 14:33 | CPEKG ---
Heart Rate: 50 RR Interval: 1200 P-R Interval: 184 QRSD Interval: 102 QT Interval: 476 QTC Interval: 435 QRS [place]: 56 T Wave [place]: 50 EKG Severity - ABNORMAL ECG - EKG Impression: ATRIAL-PACED RHYTHM EKG Impression: BORDERLINE ST ELEVATION, ANTEROLATERAL LEADS EKG Impression: PACING IS NEW IN COMPARISON TO PRIOR Electronically Signed By: Lucas Casas 30-Dec-2016 15:08:04
--- NOTE | 2016-12-30 14:39 | HOSPPROG ---
Hospitalist Progress Note Assessment/Plan: # Acute ventricular pauses- LinQ monitor recorded 18 second pause - precipitating presentation to the hospital telemetry (personally reviewed and interpreted) no pauses noted overnight patient remained in sinus oxygen saturations 96% on room air- creatinine 0.9 - NPO for permanent pacemaker placement today # seizure disorder- continue Keppra # anxiety- continue home meds p.r.n. 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 [place] # disposition greater than 2 midnights patient will require over night monitoring after permanent pacemaker placement I have discussed the case with Cardiology they will plan to take the patient to the [facility] [place] today Subjective: denies dizziness or headache overnight Objective: Vital Signs Temp Pulse Resp BP Pulse Ox 36.5 C 50 L 16 128/95 H 100 12/30/16 08:00 12/30/16 14:27 12/30/16 14:27 12/30/16 14:27 12/30/16 14:27 Laboratory Results 12/30/16 04:57 12/29/16 12/30/16 12/31/16 05:59 05:59 05:59 Intake Total 400 400 Balance 400 400 PT 13.9 SEC (12.0-15.0) 12/29/16 17:42 INR 1.08 (0.83-1.16) 12/29/16 17:42 - Physical Exam Constitutional: appears nourished Eyes: anicteric sclera Ears, Nose, Mouth, Throat: moist mucous membranes Cardiovascular: regular rate and rhythym Respiratory: no respiratory distress, no rales or rhonchi Gastrointestinal: normoactive bowel sounds, soft, non-tender abdomen Genitourinary: no bladder fullness Skin: warm, normal color Musculoskeletal: No asymmetric calves Neurologic: AAOx3 Psychiatric: interacting appropriately, not anxious Lymph, Heme, Immunologic: no cervical LAD ICD10 Worksheet Patient Problems: Problems Problem Status Onset Arrhythmia Acute Syncope Acute Seizure Acute Thoracic compression fracture Acute
[2016-12-31 00:25] VITALS: TEMP 98.4
[2016-12-31 04:37] LABS: % IMMATURE GRANULYOCYTES 0.6 % (0.0-1.1); ABSOLUTE IMMATURE GRANULOCYTES 0.12 10^3/uL (0.00-0.10); ADD DIFF? NO; ADD MORPH? NO; ADD SCAN? NO; ATYPICAL LYMPHOCYTE FLAG 0 (0-99); FRAGMENT RBC FLAG 0 (0-99); HEMATOCRIT 45.9 % (40.0-51.0); HEMOGLOBIN 16.3 g/dL (13.7-17.5); LEFT SHIFT FLG 0 (0-99); LIPEMIA HEMOLYSIS FLAG 90 (0-99); MEAN CELL HEMOGLOBIN 31.7 pg (27.9-34.1); MEAN CELL HEMOGLOBIN CONCENTR. 35.5 g/dL (32.4-36.7); MEAN CELL VOLUME 89.1 fL (81.5-99.8); MEAN PLATELET VOLUME 10.2 fL (8.7-11.7); PLATELET CLUMPS FLAG 20 (0-99); PLATELET COUNT 228 10^3/uL (150-400); RED BLOOD CELL COUNT 5.15 10^6/uL (4.40-6.38); RED CELL DISTRIBUTION WIDTH 11.9 % (11.5-15.2)
[2016-12-31 05:00] LABS: ANION GAP 11 mEq/L (8-16); CALCIUM 9.7 mg/dL (8.5-10.4); CARBON DIOXIDE 21 mEq/l (22-31); CHLORIDE 108 mEq/L (97-110); CREATININE 0.7 mg/dL (0.7-1.3); GLOMERULAR FILTRATION RATE > 60; GLUCOSE 76 mg/dL (70-100); POTASSIUM 4.4 mEq/L (3.5-5.2); SODIUM 140 mEq/L (134-144)
[2016-12-31] MEDS: levETIRAcetam 250 MG TAB PO SCH (08:21)
[2016-12-31] MEDS: ESCITALOPRAM OXALATE 10 MG TAB PO SCH (08:21)
[2016-12-31 08:35] VITALS: BP 117/67; PULSE 52; RESP 19; O2SAT 98
--- NOTE | 2016-12-31 09:10 | CPEKG ---
Heart Rate: 50 RR Interval: 1200 P-R Interval: 136 QRSD Interval: 100 QT Interval: 452 QTC Interval: 413 P [place]: -38 QRS [place]: 76 T Wave [place]: 53 EKG Severity - ABNORMAL ECG - EKG Impression: ATRIAL-PACED COMPLEXES Electronically Signed By: Christian Lewis 31-Dec-2016 16:43:55
--- NOTE | 2016-12-31 12:05 | GDS ---
[f rep st] DISCHARGE SUMMARY DISCHARGE DIAGNOSES: Include: 1. Acute ventricular pauses status post permanent pacemaker placement. 2. Seizure disorder. 3. Anxiety. 4. Syncopal episodes, presumed secondary to ventricular pauses. HISTORY OF PRESENT ILLNESS: A 36-year-old male who has a longstanding history of intermittent synco pal episodes who had a Linq monitor placed in July 2016, was noted to have an 18 second ventricu lar pause on monitoring and was brought into the hospital for placement of pacemaker. For details o f patient's initial presentation, please see the history and physical dated 12/29/2016. CONSULTATIVE SERVICES: Include Cardiology. PROCEDURES: On 12/30/2016, patient had Linq explant and a permanent pacemaker placement. HOSPITAL COURSE: By issue: 1. Acute ventricular pauses. Patient had successful explantation of his Linq monitor and implantat ion of a permanent pacemaker. Chest x-ray obtained on 12/31/2016 showed no pneumothorax and appropr iately placed dual-lead pacemaker. Patient will follow in the outpatient setting with Cardiology fo r his postprocedural followup. 2. Syncopal episodes. These have been intermittent and longstanding for this patient. He has been diagnosed with seizures since the beginning of this year and now additionally with ventricular paus es. Patient will need to have clinical followup with both Neurology and Cardiology for ongoing florencio toring of any recurrent syncopal episodes. 3. Seizure disorder. Patient will be continued on his Keppra. He is followed in the outpatient se tting by Neurology. 4. Anxiety. Patient will be maintained on his chronic medications. MEDICATIONS AT TIME OF DISPOSITION: Please reference med rec printed on 12/31/2016. FOLLOWUP APPOINTMENTS: Include Cardiology for postprocedural followup as well as with Neurology for ongoing management of his underlying seizure disorder. I spent greater than 30 minutes in the planning and coordination of this discharge. /[id number]/MODL
--- NOTE | 2016-12-31 14:21 | PDCARPN ---
Cardiology Progress Note Assessment/Plan: Assessment: Post Pacemaker implant and LINQ Explant 12/30/16 due to recorded 18 second pause caught on LINQ. LINQ, that was placed July 2016, recorded a 18 second pause during the night12/28/16. [facility] Pacemaker was placed and LINQ explanted 12/30/16 by Lucas Casas MD, His Pacer site left chest, and Exported LINQ site shows no indication of bleeding, ecchymosis, or Hematoma. He does have mild tenderness. He feels well and is anxious for discharge. He reese follow up at Clinic in one week for Pacer and wound check. Follow up with Dr Casas in 3 weeks. Care instructions were given verbally and written. Plan: Discharge Home today. 12/31/16 14:15 Subjective: I am ready to go home. No lightheadedness, or pacer site pain. Reviewed/Discussed With: hospitalist, multidisciplinary team Objective: Vital Signs (8 Hrs) Pulse Resp BP Pulse Ox 12/31/16 08:00 52 L 19 117/67 98 Intake/Output (24 Hrs) 12/30/16 12/31/16 01/01/17 05:59 05:59 05:59 Intake Total 400 800 Balance 400 800 Intake: Oral (ml) 400 400 IV Intake (ml) 400 Other: Weight 70.307 kg Intake Quantity Yes Sufficient Number of Voids Toilet 2 2 Result Diagrams: 12/31/16 04:12 12/31/16 04:12 - Physical Exam Constitutional: WDWN, no apparent distress Cardiovascular: regular rate and rhythm, no murmurs, no rubs, no gallops Respiratory: clear to auscultate bilat, no crackles, no wheezes Skin: no rashes, warm, no edema Neurologic: AAOx3 Psychiatric: cooperative, interactive ICD10 Worksheet Patient Problems: Problems Problem Status Onset Arrhythmia Acute Seizure Acute Syncope Acute Thoracic compression fracture Acute
== END 2016-12-31 11:53 | disposition home or self-care (01) | DRG 244 ==
LOC: OBSVTOIN 17:55 → F2W 18:35
PROVIDERS: ADMIT Hospitalist; ATTEND Hospitalist
PROC: 02H63JZ Insertion of Pacemaker Lead into Right Atrium, Percutaneous Approach (ICD-10-PCS; principal; 2016-12-30)
PROC: 0JH606Z Insertion of Pacemaker, Dual Chamber into Chest Subcutaneous Tissue and Fascia, Open Approach (ICD-10-PCS; principal; 2016-12-30)
PROC: 02HK3JZ Insertion of Pacemaker Lead into Right Ventricle, Percutaneous Approach (ICD-10-PCS; principal; 2016-12-30)
PROC: 0JPT0PZ Removal of Cardiac Rhythm Related Device from Trunk Subcutaneous Tissue and Fascia, Open Approach (ICD-10-PCS; principal; 2016-12-30)
DX: I49.8 Other specified cardiac arrhythmias (principal); G40.909 Epilepsy, unspecified, not intractable, without status epilepticus; F41.9 Anxiety disorder, unspecified; R55 Syncope and collapse; I48.0 Paroxysmal atrial fibrillation; R09.89 Other specified symptoms and signs involving the circulatory and respiratory systems; T50.8X5A Adverse effect of diagnostic agents, initial encounter
CPT/HCPCS: C1785; C1898; J0690; J1200; J2250; J3010

== ENCOUNTER → 2017-12-29 | Outpatient (CLI) | payer OTHER ==
--- NOTE | 2017-12-29 11:56 | CPEEG ---
[f rep st] ELECTROENCEPHALOGRAM DATE OF STUDY: 12/29/2017 INTERPRETATION: Normal EEG during wakefulness and sleep. There were no potentially epileptogenic ab normalities present on the recording. REPORT: This EEG contains 9-10 Hz of alpha activity over the posterior head regions. There was no a bnormal activation at rest during photic stimulation or hyperventilation. The patient became drowsy and fell asleep during the recording. There was no abnormal activation during drowsiness, sleep, or during times of arousal. /[id number]/MODL
== END ==
LOC: FCPNEURO 07:48
PROVIDERS: ATTEND Psychiatry & Neurology Neurology
DX: R56.9 Unspecified convulsions (principal); R93.0 Abnormal findings on diagnostic imaging of skull and head, not elsewhere classified

== ENCOUNTER → 2018-01-01 | Outpatient (CLI) | payer OTHER ==
[~2018-01-01] MED LIST changes: +IOPAMIDOL (ISOVUE-300) 100 ML BTL ONE; -LIDOCAINE 1% 30 ML SDV ONE
== END ==
LOC: FIMAGING 15:16
PROVIDERS: ATTEND Psychiatry & Neurology Neurology
DX: R93.0 Abnormal findings on diagnostic imaging of skull and head, not elsewhere classified (principal); Z95.0 Presence of cardiac pacemaker
CPT/HCPCS: Q9967